=== PATIENT | female | born 1950 | race Caucasian/White ===

== ENCOUNTER 2022-12-30 08:39 | Outpatient (CLI) | payer MEDICARE, OTHER ==
[2022-12-30] MEDS ORDERED: Iopamidol 300 61% 100 ML VIAL FS ONE (09:38)
== END 2022-12-30 08:40 | disposition home or self-care (01) ==
LOC: CSHCT 08:39
PROVIDERS: ATTEND Internal Medicine Hematology & Oncology
DX: K11.8 Other diseases of salivary glands (principal); C50.912 Malignant neoplasm of unspecified site of left female breast
CPT/HCPCS: 71260; 74177; 82565; Q9967

== ENCOUNTER 2023-02-02 08:05 | Outpatient (CLI) | payer MEDICARE, OTHER ==
[2023-02-02] MEDS ORDERED: Iopamidol 300 61% 100 ML VIAL FS ONE (13:09)
== END 2023-02-02 08:06 | disposition home or self-care (01) ==
LOC: CSHCT 08:05
PROVIDERS: ATTEND Otolaryngology Plastic Surgery within the Head & Neck
DX: K11.8 Other diseases of salivary glands (principal)
CPT/HCPCS: 70491; 82565; Q9967

== ENCOUNTER 2023-03-08 11:31 | Outpatient (CLI) | payer MEDICARE, OTHER | END 2023-03-08 11:32 | disposition home or self-care (01) | LOC: CSHRAD 11:31 | PROVIDERS: ATTEND Neurological Surgery | DX: M54.2 Cervicalgia (principal); M47.812 Spondylosis without myelopathy or radiculopathy, cervical region | CPT/HCPCS: 72040 ==

== ENCOUNTER 2023-07-04 15:08 | Outpatient (CLI) | payer MEDICARE, OTHER | END 2023-07-04 15:09 | disposition home or self-care (01) | LOC: CSHMAMMO 15:08 | PROVIDERS: ATTEND Internal Medicine Hematology & Oncology | DX: Z12.31 Encounter for screening mammogram for malignant neoplasm of breast (principal); Z80.3 Family history of malignant neoplasm of breast; Z85.3 Personal history of malignant neoplasm of breast; Z98.890 Other specified postprocedural states | CPT/HCPCS: 77063; 77067 ==

== ENCOUNTER 2024-01-19 09:36 | Outpatient (CLI) | payer MEDICARE | END 2024-01-19 09:37 | disposition home or self-care (01) | LOC: CSHRAD 09:36 | PROVIDERS: ATTEND Physician Assistant | DX: M54.2 Cervicalgia (principal); Z98.890 Other specified postprocedural states; M47.812 Spondylosis without myelopathy or radiculopathy, cervical region | CPT/HCPCS: 72040 ==